=== PATIENT | male | born 1970 | race Native Hawaiian/Other Pacific Islander ===

== ENCOUNTER 2019-10-17 08:23 | Emergency (ER) | payer SELFPAY ==
[2019-10-17 08:42] VITALS: BP 118/94
--- NOTE | 2019-10-17 10:32 | Emergency Department Report ---
Minor Respiratory - HPI Chief Complaint: Dyspnea/Respdistress Stated Complaint: KENDRICK Time Seen by Provider: 10/17/19 10:03 Duration: 3 Days Pain Location: Chest Severity: mild Minor Respiratory: Yes Able to Tolerate Fluids, Yes Cough, Yes Shortness of Breath, No Rhinorrhea, No Sore Throat, No Ear Pain, No Sick Contacts, No Hemoptysis, No Chest Pain, No Fever Other History: Patient is a 49-year-old male who comes to the ER complaining of difficulty in breathing while lying down last night. He also endorses diarrhea. He has no nausea vomiting. No abd or back pain. No difficulty urinating. He has no fever or chills. He has no known exposure to covid. Patient denies any chest pain or wheezing. Patient does report asthma years ago. Patient does not smoke. He endorses beer. Patient has not seen his primary care doctor. Patient is ambulatory to the ER no acute distress parts interpreter was used to interview patient. ED Review of Systems ROS: Stated complaint: KENDRICK Other details as noted in HPI Comment: All other systems reviewed and negative ED Past Medical Hx - Past Medical History Previous Medical History?: Yes Hx Asthma: Yes - Surgical History Past Surgical History?: No - Family History Family history: no significant - Social History Smoking Status: Never Smoker Substance Use Type: Alcohol - Medications Home Medications: Home Medications Medication Instructions Recorded Confirmed Last Taken Type Benzonatate [Tessalon Perles] 100 mg PO Q12H PRN #20 capsule 10/17/19 Unknown Rx Fluticasone [Flonase] 1 spray NS QDAY #1 bottle 10/17/19 Unknown Rx Minor Respiratory Exam - Exam General: Vital signs noted. No distress. Alert and acting appropriately. HEENT: Yes Moist Mucous Membranes, No Pharyngeal Erythema, No Pharyngeal Exudates, No Rhinorrhea, No Conjuctival Injection, No Frontal Tenderness, No Maxillary Tenderness Ear: Neither TM Bulge, Neither TM Erythema, Neither EAC Pain, Neither EAC Discharge Neck: Yes Supple, No Adenopathy Lungs: Yes Good Air Exchange, Yes Wheezes (MILD B BASES), No Ronchi, No Stridor, No Cough, No Labored Respirations, No Retractions, No Use of Accessory Muscles, No Other Abnormal Lung Sounds Heart: Yes Regular, No Murmur Abdomen: Yes Normal Bowel Sounds, No Tenderness, No Peritoneal Signs Skin: No Rash, No Edema Neurologic: Alert and oriented, no deficits. Musculoskeletal: Unremarkable. ED Course Vital Signs 10/17/19 08:41 Temperature 98.4 F Pulse Rate 95 H Respiratory 18 Rate Blood Pressure 118/94 [Right] O2 Sat by Pulse 96 Oximetry ED Medical Decision Making - Radiology Data Radiology results: report reviewed, image reviewed NAP - Medical Decision Making X-ray shows no acute process. Poker Manager was utilized to obtain HPI. Vital Signs 10/17/19 08:41 Temperature 98.4 F Pulse Rate 95 H Respiratory 18 Rate Blood Pressure 118/94 [Right] O2 Sat by Pulse 96 Oximetry Patient is in no acute distress and is taking p.o. without difficulty. His vital signs are normal. Oxygen saturation as checked by the provider was 100% with a heart rate of 88 while lying flat in the room. Patient has mild bilateral lower lobe wheezing. DuoNeb and prednisone were given in the ER. No n/v; or diarrhea while in ER. abd snt. no cva tenderness no known covid exposure Patient is being discharged home with PCP follow-up. Pt educated on dc poc with parts interpreter; he verbalizes understanding. - Differential Diagnosis RO URI Critical care attestation.: If time is entered above; I have spent that time in minutes in the direct care of this critically ill patient, excluding procedure time. ED Disposition Clinical Impression: URI (upper respiratory infection), Diarrhea Disposition: DC-01 TO HOME OR SELFCARE Is pt being admited?: No Does the pt Need Aspirin: No Condition: Stable Instructions: Asthma (ED) Additional Instructions: MEDS ORDERED FOLLOW UP WITH PCP REFERRAL BELOW OTC MOTRIN OR TYLENOL FOR PAIN OTC LOMOTIL FOR DIARRHEA Prescriptions: Fluticasone [Flonase] 1 spray NS QDAY #1 bottle Benzonatate [Tessalon Perles] 100 mg PO Q12H PRN #20 capsule PRN Reason: Cough Referrals: PRIMARY MD ESTEFANI [Primary Care Provider] - 3-5 Days NINOSKA ZHU MD [Staff Physician] - 3-5 Days Time of Disposition: 11:20
--- NOTE | 2019-10-17 11:04 | XRay Report ---
CHEST 2 VIEWS INDICATION: sob. COMPARISON: None FINDINGS: Support devices: None. Heart: Within normal limits. Lungs/pleura: No acute air space or interstitial disease. No pneumothorax. Additional findings: None. IMPRESSION: No acute findings. Signer Name: Jerod Malave Jr, MD Signed: 10/17/2019 10:59 AM Workstation Name: [id number]
[2019-10-17] MEDS ORDERED: predniSONE 20 MG TAB PO ONE (11:15)
[2019-10-17] MEDS ORDERED: IPRATROPIUM/ALBUTEROL SULFATE 3 ML AMPUL.NEB IH ONE (11:15)
== END 2019-10-17 11:49 | disposition home or self-care (01) ==
LOC: ED 08:23
DX: J06.9 Acute upper respiratory infection, unspecified (principal); R19.7 Diarrhea, unspecified; J45.909 Unspecified asthma, uncomplicated; Z79.899 Other long term (current) drug therapy
CPT/HCPCS: 71046; 94640; 99283; J7512